=== PATIENT | female | born 1965 | race Caucasian/White ===

== ENCOUNTER 2024-03-24 13:15 | Day surgery (SDC) | payer OTHER, SELFPAY ==
--- NOTE | 2024-03-23 08:12 | PM.PREOP ---
Pre-operative Note Interval Note History & Physical reviewed/Exam performed by Physician: Yes Changes to H&P: No
--- NOTE | 2024-03-24 | PATH_ITS ---
[facility] Accession Number: [id number] No. of containers..01 Tissue . 01 Material submitted: . CYST - PILONIDAL CYST . 01 Diagnosis: SKIN, SITE NOT DESIGNATED, BIOPSY: Cystic epidermal invagination with underlying scar and mild chronic inflammation. . NOTE: While nonspecific, the changes could represent, in the proper clinical setting, site of a previously treated pilonidal cyst. Clinical pathological correlation is advised for definitive diagnosis. [facility] 03/29/2024 1025 Local . 01 Electronically signed: . Aby Montelongo MD, Dermatopathologist NPI- [id number] . 01 Gross description: . Received in formalin, labeled with two patient identifiers and pilonidal cyst, and consists of a 3.7 x 0.8 cm douglas-white, wrinkled, centrally creased, elliptical skin excised to a depth of 1.2 cm. The tissue is diffusely fibrotic. No distinct cyst is appreciated. Also received in the same container is a 6.5 x 3.5 x 2.0 cm, yellow, lobulated portion of adipose tissue which has a homogenous yellow cut surface. Yarn Preparation Supervisor sections of the skin, subcutaneous tissue, and adipose tissue are submitted in cassette A1. ([id number]) /FRR 03/27/2024 1445 Local . 01 Pathologist provided ICD-10: L90.5 . 01 CPT . 208901 Specimen Comment: A courtesy copy of this report has been sent to [phone] Performed at: 01 [facility] [address] [place] [address] Suite [facility], [place], [place] [id number] MD Ambrocio Rubi MD Phone: [phone]
[2024-03-24 13:37] VITALS: BMI 26.5
[2024-03-24 13:50] VITALS: BP 129/63; PULSE 79; RESP 17; TEMP 36.7; O2SAT 100
[2024-03-24] MEDS: ACETAMINOPHEN 325 MG TABLET 975 MG PO (13:54)
[2024-03-24] MEDS: LACTATED RINGERS 1,000 ML 21 ML IV (13:55)
[2024-03-24] MEDS: CEFAZOLIN 2 GM/100 ML PREMIX 100 ML IV (14:12)
[2024-03-24] MEDS: BUPIVACAINE 0.25% (PF) VIAL 30 ML INJ (14:24)
[2024-03-24 14:58] VITALS: BP 117/44; PULSE 96; RESP 14; TEMP 36.4; O2SAT 100
--- NOTE | 2024-03-24 15:02 | PM.OP.1 ---
Operative Date/Time/Diagnoses Date of procedure: 03/24/24 Time of procedure: 15:02 Pre-op diagnosis: Pilonidal cyst Post-op diagnosis: same Procedure & Clinicians Procedure: excision of pilonidal cyst Same procedure as scheduled: Yes Indications: 58 y.o woman with chronic pilonidal cyst disease sp numerous I&Ds here for definitive surgery Surgeon: Emerson Alvarez Wood Processing Worker: Joe Mireles Anesthesia Type: General Operative Notes Findings: chronic pilonidal cyst, no signs of active infection Specimen(s): other (pilonidal cyst) Estimated Blood Loss (mL): 25 Procedure in detail: Patient was brought to the operating room and bilateral lower extremity compression devices were applied. General anesthesia was induced and she was intubated with a endotracheal tube. She was then placed into the prone position and appropriately padded. 2 g of Ancef were given prior to skin incision. They were prepped and draped in the usual sterile fashion. A time-out was performed. 0.25% bupivicaine was injected into the skin. An elliptical incision was made around the multiple pits of the pilonidal cyst. Pilonidal cyst did not appear to be actively infective and it was excised in its entirety off of the sacral fascia. Wound was checked for hemostasis. Subcutaneous tissue reapproximated with 0 Vicryl suture. Skin was closed with interrupted 2-0 nylon suture. Sponge and instrument count was correct. Patient tolerated procedure well was returned to supine position extubated and transferred to the postoperative care unit in stable condition. Complications: none Post-operative Condition: stable Disposition: same day surgery
[2024-03-24 15:03] VITALS: BP 88/49; PULSE 92; RESP 18; O2SAT 99
[2024-03-24 15:11] VITALS: BP 98/33; PULSE 81; RESP 12; TEMP 36.6; O2SAT 98
[2024-03-24] MEDS: OXYCODONE IR 5 MG TABLET PO (15:15)
[2024-03-24 15:17] VITALS: BP 116/55; PULSE 82; RESP 12; O2SAT 100
== END 2024-03-24 15:43 | disposition home or self-care (01) ==
PROVIDERS: PCP Nurse Practitioner Family; Referring Provider Surgery; Visit Provider Surgery
PROC: (CPT 11770; principal; 2024-03-24 15:15)
DX: L05.91 Pilonidal cyst without abscess (principal)
CPT/HCPCS: 11770; J0690; J1100; J1885; J2405; J2704; J3010